=== PATIENT | male | born 1955 | race Caucasian/White ===

== ENCOUNTER 2023-06-28 18:45 | Inpatient (IN) | payer MEDICARE, MEDICAID ==
[~2023-06-28] VITALS: Ht 182.9 cm; Wt 88.6 kg
[2023-06-28 20:35] LABS: Basophils # (auto) 0.1 10 ^3/uL (0-0.2); Basophils % (auto) 0.9 % (0.0-2.0); Eosinophils # (auto) 0.4 10 ^3/uL (0-0.8); Eosinophils % (auto) 3.5 % (0.0-7.0); Hemoglobin 13.9 g/dL (13.5-17.5); Red Cell Distribution Width 15.4 % (11.8-14.3)
[2023-06-28 20:37] LABS: Hematocrit 40.7 % (41.0-53.0); Lymphocytes # (auto) 2.4 10 ^3/uL (0.4-5.4); Lymphocytes % (auto) 22.2 % (10.0-50.0); Mean Corpuscular Hemoglobin 28.1 pg (28.0-32.0); Mean Corpuscular Hgb Conc. 34.1 g/dL (32.0-36.0); Mean Corpuscular Volume 82.3 fL (80.0-100.0); Monocytes # (auto) 0.8 10 ^3/uL (0-1.3); Monocytes % (auto) 7.8 % (0.0-12.0); Neutrophils % (auto) 65.6 % (37.0-80.0); Red Blood Cells 4.95 10^6/uL (4.5-5.90); White Blood Cell 10.7 10^3/uL (4.4-10.8)
[2023-06-28 21:04] LABS: Alanine Aminotransferase 16 U/L (7-40); Albumin 4.2 g/dL (3.2-4.8); Alkaline Phosphatase 101 U/L (46-116); Anion Gap 12.9 (5-15); Aspartate Aminotransferase 10 U/L (13-40); BUN/Creatinine Ratio 21.7 (10.0-20.0); Bilirubin, Total 1.5 mg/dL (0.2-1.0); Blood Urea Nitrogen 36 mg/dL (9-23); Calcium 9.7 mg/dL (8.7-10.4); Carbon Dioxide 20.1 mmol/L (20-30); Chloride 104 mmol/L (98-107); Glucose 276 mg/dL (74-106); Potassium 3.7 mmol/L (3.5-5.1); Sodium 137 mmol/L (136-145)
[2023-06-28 21:05] LABS: Total Protein 7.3 g/dL (5.7-8.2)
[2023-06-29] MEDS ORDERED: AZITHROMYCIN 500MG/ 250ML 250 ML IV ONE (04:30)
[2023-06-29] MEDS ORDERED: cefTRIAXone 1GM/50ML D5W 50 ML IV ONE (04:30)
[2023-06-29] MEDS ORDERED: ACETAMINOPHEN 325 MG TAB PO ONE (04:30)
[2023-06-29] MEDS ORDERED: DexAMETHasone SOD PHOS 10MG/1ML VIAL INJ IV ONE (04:30)
[2023-06-29] MEDS ORDERED: LACTATED RINGER'S 1,000 ML IV ONE (04:30)
[2023-06-29] MEDS: ALBUTEROL SULF 2.5 MG/0.5ML(0.5%) NEB SOLN NEB ONE ×2 (04:37→05:14)
[2023-06-29] MEDS ORDERED: ONDANSETRON HCL 4 MG/2 ML VIAL IV PRN (06:00)
[2023-06-29] MEDS ORDERED: ACETAMINOPHEN 325 MG TAB PO PRN (06:00)
[2023-06-29] MEDS ORDERED: DEXTROSE (50%) 50ML SYRG IV PRN (06:00)
[2023-06-29] MEDS: ACCU-CHEK COMFORT CURVE STRIP VI SCH ×4 (07:00→22:28)
[2023-06-29] MEDS: cefTRIAXone 1GM/50ML D5W 50 ML IV SCH (08:16)
[2023-06-29] MEDS: InsuLIN REG 1unit/0.01ml Soln (100units/ml) SC SCH ×4 (08:35→22:33)
[2023-06-29] MEDS ORDERED: PANTOPRAZOLE 40 MG TAB PO SCH (10:00)
[2023-06-29] MEDS ORDERED: RIVAROXABAN 10 MG TAB PO SCH (10:00)
[2023-06-29] MEDS: AZITHROMYCIN 500MG/ 250ML 250 ML IV SCH (10:20)
[2023-06-29] MEDS: amLODIPine BESYLATE 5 MG TAB PO SCH (10:21)
[2023-06-29 12:51] LABS: Urine Bacteria NONE SEEN /hpf (None Seen); Urine Blood Negative /uL (Negative); Urine Clarity Clear (Clear); Urine Color Yellow (Yellow); Urine Hyaline Cast FEW /lpf (0 - 2); Urine Protein, UAD Negative (Negative); Urine Specific Gravity 1.013 (1.001-1.035); Urine WBC 1 /hpf (0 - 3)
[2023-06-29 13:26] LABS: Amphetamine Screen, Urine Pos (NEGATIVE)
[2023-06-29 13:27] LABS: Barbiturate Scree,Urine Neg (NEGATIVE); Benzodiazephine Screen, Urine Neg (NEGATIVE)
[2023-06-29 13:28] LABS: Cannabinoid Screen, Urine Pos (NEGATIVE); Cocaine Screen, Urine Neg (NEGATIVE); Opiate Scree,Urine Neg (NEGATIVE); Phencyclidine Screen, Urine Neg (NEGATIVE)
[2023-06-29 18:38] LABS: COVID19 ANTIGEN SOFIA FIA NEGATIVE (NEGATIVE)
[2023-06-29 21:22] VITALS: BP 141/77; PULSE 91; PULSE 97; RESP 16; TEMP 97.7; O2SAT 97
[2023-06-29 22:12] VITALS: PULSE 91; RESP 20; O2SAT 97
[2023-06-29] MEDS ORDERED: ACE3T PO (22:45)
[2023-06-29] MEDS ORDERED: GABA-339 PO (22:45)
[2023-06-29] MEDS ORDERED: METF-370 PO (22:45)
[2023-06-30] VITALS (7 sets, daily range): BP systolic 132–149; BP diastolic 70–97; PULSE 54–95; RESP 18–20; TEMP 98–98.3; O2SAT 95–98
[2023-06-30] MEDS: ACCU-CHEK COMFORT CURVE STRIP VI SCH ×4 (06:09→21:20)
[2023-06-30] MEDS: InsuLIN REG 1unit/0.01ml Soln (100units/ml) SC SCH ×4 (06:15→21:29)
[2023-06-30 06:54] LABS: Basophils # (auto) 0 10 ^3/uL (0-0.2); Basophils % (auto) 0.5 % (0.0-2.0); Eosinophils # (auto) 0.1 10 ^3/uL (0-0.8); Eosinophils % (auto) 0.7 % (0.0-7.0); Hematocrit 40.3 % (41.0-53.0); Hemoglobin 13.5 g/dL (13.5-17.5); Lymphocytes # (auto) 1.8 10 ^3/uL (0.4-5.4); Mean Corpuscular Hemoglobin 28.1 pg (28.0-32.0); Mean Corpuscular Hgb Conc. 33.6 g/dL (32.0-36.0); Mean Corpuscular Volume 83.6 fL (80.0-100.0); Monocytes # (auto) 0.9 10 ^3/uL (0-1.3); Monocytes % (auto) 8.7 % (0.0-12.0); Neutrophils # (auto) 7.3 10 ^3/uL (1.6-8.6); Neutrophils % (auto) 72.1 % (37.0-80.0); Nucleated Red Blood Cells % 0.1 %; Red Blood Cells 4.82 10^6/uL (4.5-5.90); Red Cell Distribution Width 15.4 % (11.8-14.3); White Blood Cell 10.1 10^3/uL (4.4-10.8)
[2023-06-30 07:58] LABS: Albumin 3.7 g/dL (3.2-4.8); Aspartate Aminotransferase < 8 U/L (13-40)
[2023-06-30 07:59] LABS: Alanine Aminotransferase 11 U/L (7-40); Alkaline Phosphatase 81 U/L (46-116); Anion Gap 8 (5-15); BUN/Creatinine Ratio 22.4 (10.0-20.0); Bilirubin, Total 1.4 mg/dL (0.2-1.0); Blood Urea Nitrogen 22 mg/dL (9-23); Calcium 9.3 mg/dL (8.5-10.1); Carbon Dioxide 24 mmol/L (20-30); Chloride 107 mmol/L (98-107); Glucose 278 mg/dL (74-106); Potassium 3.3 mmol/L (3.5-5.1); Sodium 139 mmol/L (136-145); Total Protein 6.8 g/dL (5.7-8.2)
[2023-06-30] MEDS: cefTRIAXone 1GM/50ML D5W 50 ML IV SCH (08:43)
[2023-06-30] MEDS: amLODIPine BESYLATE 5 MG TAB PO SCH (09:33)
[2023-06-30] MEDS: AZITHROMYCIN 500MG/ 250ML 250 ML IV SCH (09:33)
[2023-06-30 15:14] LABS: Hepatitis B Surface Antigen Negative (Negative)
[2023-06-30 15:36] LABS: Hepatitis C Antibody Negative (Negative)
[2023-06-30] MEDS: DOXYCYCLINE 100 MG TAB/CAP PO SCH (21:26)
[2023-07-01 05:00] VITALS: BP 150/87; PULSE 84; RESP 20; TEMP 97.8; O2SAT 95
[2023-07-01] MEDS: ACCU-CHEK COMFORT CURVE STRIP VI SCH ×4 (06:12→21:11)
[2023-07-01] MEDS: InsuLIN REG 1unit/0.01ml Soln (100units/ml) SC SCH ×4 (06:16→21:15)
[2023-07-01 08:00] VITALS: BP 157/105; PULSE 88; PULSE 93; RESP 16; RESP 19; TEMP 98; O2SAT 96; O2SAT 97
[2023-07-01] MEDS: amLODIPine BESYLATE 5 MG TAB PO SCH (09:47)
[2023-07-01] MEDS: cefTRIAXone 1GM/50ML D5W 50 ML IV SCH (09:47)
[2023-07-01] MEDS: DOXYCYCLINE 100 MG TAB/CAP PO SCH ×2 (09:47→21:11)
[2023-07-01] MEDS ORDERED: cloNIDine HCL 0.1 MG TAB PO ONE (10:30)
[2023-07-01 12:00] VITALS: BP 180/113; PULSE 77; RESP 20; TEMP 98; O2SAT 97
[2023-07-01 16:00] VITALS: BP 137/89; PULSE 101; RESP 20; TEMP 98.5; O2SAT 96
[2023-07-01 20:00] VITALS: PULSE 96; RESP 19; O2SAT 96
[2023-07-01 22:00] VITALS: BP 116/80; PULSE 96; RESP 20; TEMP 98.2; O2SAT 98
[2023-07-02 05:00] VITALS: BP 137/89; PULSE 82; RESP 18; TEMP 97.6; O2SAT 95
[2023-07-02] MEDS: ACCU-CHEK COMFORT CURVE STRIP VI SCH ×3 (06:25→17:00)
[2023-07-02] MEDS: InsuLIN REG 1unit/0.01ml Soln (100units/ml) SC SCH ×3 (06:29→17:00)
[2023-07-02 08:00] VITALS: PULSE 92; RESP 18; O2SAT 96
[2023-07-02 09:00] VITALS: BP 129/85; PULSE 87; RESP 14; TEMP 98.1; O2SAT 95
[2023-07-02] MEDS: DOXYCYCLINE 100 MG TAB/CAP PO SCH (10:12)
[2023-07-02] MEDS: amLODIPine BESYLATE 5 MG TAB PO SCH (10:12)
[2023-07-02] MEDS: cefTRIAXone 1GM/50ML D5W 50 ML IV SCH (10:12)
[2023-07-02] MEDS: GABAPENTIN 300 MG CAP PO SCH ×2 (12:00→14:00)
[2023-07-02 13:00] VITALS: BP 174/84; PULSE 67; RESP 18; TEMP 99; O2SAT 99
[2023-07-02] MEDS ORDERED: cloNIDine HCL 0.1 MG TAB PO ONE (13:15)
[2023-07-02 17:00] VITALS: BP 118/73; PULSE 89; RESP 17; TEMP 98.5; O2SAT 96
== END 2023-07-02 18:22 | DRG 179 ==
LOC: ER 18:45 → OVERFLOW 06-29 05:55 → WEST WING 06-29 21:15
PROVIDERS: ADMIT Nurse Practitioner; ATTEND Family Medicine
DX: J15.6 Pneumonia due to other Gram-negative bacteria (principal); J15.9 Unspecified bacterial pneumonia; E86.0 Dehydration; I12.9 Hypertensive chronic kidney disease with stage 1 through stage 4 chronic kidney disease, or unspecified chronic kidney disease; E11.22 Type 2 diabetes mellitus with diabetic chronic kidney disease; E11.65 Type 2 diabetes mellitus with hyperglycemia; F17.210 Nicotine dependence, cigarettes, uncomplicated; N18.9 Chronic kidney disease, unspecified; R79.89 Other specified abnormal findings of blood chemistry; Z20.822 Contact with and (suspected) exposure to COVID-19; Z59.00 Homelessness unspecified
CPT/HCPCS: 36415; 71045; 80053; 80307; 81001; 82962; 83036; 83880; 84484; 85025; 86803; 87040; 87340; 87426; 93005; 93970; 94640; 97110; 97163; 97530; G0378; J0696; J1100; J1815

== ENCOUNTER 2024-04-24 15:02 | Inpatient (IN) | payer OTHER, BC, MEDICAID ==
[~2024-04-24] VITALS: Ht 182.9 cm; Wt 106.6 kg
[~2024-04-24 15:02] MED LIST: ACE3T PO; GABA-339 PO; METF-370 PO
[2024-04-24 16:43] LABS: Basophils # (auto) 0.1 10 ^3/uL (0-0.2); Basophils % (auto) 0.7 % (0.0-2.0); Eosinophils # (auto) 0 10 ^3/uL (0-0.8); Hematocrit 39.5 % (41.0-53.0); Hemoglobin 13.5 g/dL (13.5-17.5); Lymphocytes # (auto) 0.6 10 ^3/uL (0.4-5.4); Lymphocytes % (auto) 4.4 % (10.0-50.0); Mean Corpuscular Hemoglobin 28.3 pg (28.0-32.0); Mean Corpuscular Hgb Conc. 34.2 g/dL (32.0-36.0); Mean Corpuscular Volume 82.8 fL (80.0-100.0); Monocytes # (auto) 1.2 10 ^3/uL (0-1.3); Monocytes % (auto) 8.3 % (0.0-12.0); Neutrophils # (auto) 12.4 10 ^3/uL (1.6-8.6); Neutrophils % (auto) 86.6 % (37.0-80.0); Red Blood Cells 4.77 10^6/uL (4.5-5.90); Red Cell Distribution Width 14.2 % (11.8-14.3); White Blood Cell 14.4 10^3/uL (4.4-10.8)
[2024-04-24 17:00] LABS: Alanine Aminotransferase 33 U/L (7-40); Albumin 3.5 g/dL (3.2-4.8); Alkaline Phosphatase 94 U/L (46-116); Anion Gap 7 (5-15); Aspartate Aminotransferase 140 U/L (13-40); BUN/Creatinine Ratio 18.3 (10.0-20.0); Bilirubin, Total 4.4 mg/dL (0.2-1.0); Blood Urea Nitrogen 30 mg/dL (9-23); Calcium 8.6 mg/dL (8.5-10.1); Carbon Dioxide 26 mmol/L (20-30); Chloride 95 mmol/L (98-107); Glucose 374 mg/dL (74-106); Magnesium 1.5 mg/dL (1.6-2.6); Potassium 4.1 mmol/L (3.5-5.1); Sodium 128 mmol/L (136-145); Total Protein 5.8 g/dL (5.7-8.2)
[2024-04-24 17:11] LABS: Creatine Kinase IFCC 6497 U/L (46-171)
[2024-04-24] MEDS: PIPERACILLIN-TAZOB 3.375GM 100 ML IV ONE (17:11)
[2024-04-24] MEDS: SODIUM CHLORIDE 0.9% 1,000 ML IV ONE ×2 (17:11→19:05)
[2024-04-24 19:31] VITALS: PULSE 98; RESP 24; O2SAT 90
[2024-04-24 19:44] LABS: Urine Amorphous Crystal FEW /hpf (None Seen); Urine Bacteria FEW /hpf (None Seen); Urine Blood 3+ /uL (Negative); Urine Clarity Turbid (Clear); Urine Color Light-Orange (Yellow); Urine Protein, UAD 1+ (Negative); Urine Specific Gravity 1.013 (1.001-1.035); Urine Urobilinogen Normal (Negative); Urine WBC 4 /hpf (0 - 3); Urine pH 5.5 (5.0-9.0)
[2024-04-24] MEDS: ACETAMINOPHEN 500 MG TAB PO ONE (19:44)
[2024-04-24 19:53] LABS: COVID19 ANTIGEN SOFIA FIA NEGATIVE (NEGATIVE)
[2024-04-24] MEDS ORDERED: NITROGLYCERIN 0.4 MG SL TAB SL PRN (20:30)
[2024-04-24] MEDS ORDERED: ONDANSETRON HCL 4 MG/2 ML VIAL IV PRN (20:30)
[2024-04-24] MEDS ORDERED: DOCUSATE SOD 100 MG CAP PO PRN (20:30)
[2024-04-24] MEDS ORDERED: MORPHINE SULFATE INJ 2 MG/ml SYRG IV PRN (20:30)
[2024-04-24] MEDS ORDERED: IBUPROFEN 600 MG TAB PO PRN (20:30)
[2024-04-24] MEDS ORDERED: VANCOMYCIN PER PHARMACY 0 MG IV SCH (20:30)
[2024-04-24] MEDS ORDERED: DEXTROSE (50%) 50ML SYRG IV PRN (20:30)
[2024-04-24] MEDS ORDERED: hydrALAZINE HCL 20 MG/ML VL IV PRN (21:00)
[2024-04-24] MEDS: SODIUM CHLORIDE 0.9% 1,000 ML IV SCH (21:15)
[2024-04-24] MEDS: MAGNESIUM SULFATE 1GM/100ML 100 ML IV SCH (21:15)
[2024-04-25] VITALS (9 sets, daily range): BP systolic 113–140; BP diastolic 59–78; PULSE 80–97; RESP 16–20; TEMP 98.2–100.9; O2SAT 90–96
[2024-04-25] MEDS: InsuLIN REG 1unit/0.01ml Soln (100units/ml) SC SCH
[2024-04-25] MEDS: ENOXAPARIN SOD 100 MG/1 ML SYRINGE SC SCH (01:09)
[2024-04-25] MEDS: VANCOMYCIN 1GM/200ML 200 ML IV ONE (01:11)
[2024-04-25] MEDS: ACCU-CHEK COMFORT CURVE STRIP VI SCH (01:12)
[2024-04-25] MEDS: MAGNESIUM SULFATE 1GM/100ML 100 ML IV ONE (01:12)
[2024-04-25] MEDS: PIPERACILLIN-TAZOB 3.375GM 100 ML IV SCH (02:50)
[2024-04-25 05:50] LABS: Basophils # (auto) 0.1 10 ^3/uL (0-0.2); Basophils % (auto) 0.6 % (0.0-2.0); Eosinophils # (auto) 0.1 10 ^3/uL (0-0.8); Eosinophils % (auto) 0.4 % (0.0-7.0); Hemoglobin 12.8 g/dL (13.5-17.5); Lymphocytes # (auto) 1.3 10 ^3/uL (0.4-5.4); Lymphocytes % (auto) 10.3 % (10.0-50.0); Mean Corpuscular Hemoglobin 28.1 pg (28.0-32.0); Mean Corpuscular Hgb Conc. 33.8 g/dL (32.0-36.0); Mean Corpuscular Volume 83.1 fL (80.0-100.0); Monocytes # (auto) 0.9 10 ^3/uL (0-1.3); Monocytes % (auto) 7.2 % (0.0-12.0); Neutrophils # (auto) 10.3 10 ^3/uL (1.6-8.6); Neutrophils % (auto) 81.5 % (37.0-80.0); Red Blood Cells 4.57 10^6/uL (4.5-5.90); Red Cell Distribution Width 14.1 % (11.8-14.3); White Blood Cell 12.7 10^3/uL (4.4-10.8)
[2024-04-25 06:02] LABS: Alanine Aminotransferase 28 U/L (7-40); Albumin 3.3 g/dL (3.2-4.8); Alkaline Phosphatase 81 U/L (46-116); Anion Gap 7 (5-15); Aspartate Aminotransferase 80 U/L (13-40); BUN/Creatinine Ratio 16.6 (10.0-20.0); Bilirubin, Total 3.3 mg/dL (0.2-1.0); Blood Urea Nitrogen 25 mg/dL (9-23); Calcium 8.9 mg/dL (8.7-10.4); Carbon Dioxide 25 mmol/L (20-30); Chloride 104 mmol/L (98-107); Glucose 208 mg/dL (74-106); Potassium 3.4 mmol/L (3.5-5.1); Sodium 136 mmol/L (136-145)
[2024-04-25] MEDS: MORPHINE SULFATE INJ 2 MG/ml SYRG IV PRN (08:30)
[2024-04-25 09:04] LABS: Sodium Urine < 10 mmol/L (40-220)
[2024-04-25 09:11] LABS: Protein, Urine 104.1 mg/dL (0.0-11.9)
[2024-04-25 09:12] LABS: Creatinine, Urine 62.05 mg/dL (30.0-125.0)
[2024-04-25] MEDS: POTASSIUM CHLORIDE 8 MEQ TAB PO SCH (10:00)
[2024-04-25] MEDS ORDERED: SODIUM CHLORIDE 0.9% 1,000 ML IV SCH (16:15)
[2024-04-25] MEDS: SODIUM CHLORIDE 0.9% 1,000 ML IV SCH (16:41)
[2024-04-25] MEDS: VANCOMYCIN 1GM/200ML 200 ML IV SCH (20:00)
[2024-04-26] VITALS (9 sets, daily range): BP systolic 110–140; BP diastolic 52–79; PULSE 59–90; RESP 16–22; TEMP 37; O2SAT 91–100
[2024-04-26 05:52] LABS: Basophils # (auto) 0.1 10 ^3/uL (0-0.2); Basophils % (auto) 0.5 % (0.0-2.0); Eosinophils # (auto) 0.3 10 ^3/uL (0-0.8); Hematocrit 35.8 % (41.0-53.0); Lymphocytes # (auto) 1.2 10 ^3/uL (0.4-5.4); Lymphocytes % (auto) 10.5 % (10.0-50.0); Mean Corpuscular Hemoglobin 28.1 pg (28.0-32.0); Mean Corpuscular Hgb Conc. 33.6 g/dL (32.0-36.0); Mean Corpuscular Volume 83.7 fL (80.0-100.0); Monocytes # (auto) 1.1 10 ^3/uL (0-1.3); Monocytes % (auto) 9.6 % (0.0-12.0); Neutrophils # (auto) 8.9 10 ^3/uL (1.6-8.6); Neutrophils % (auto) 76.4 % (37.0-80.0); Red Blood Cells 4.28 10^6/uL (4.5-5.90); Red Cell Distribution Width 14.5 % (11.8-14.3); White Blood Cell 11.7 10^3/uL (4.4-10.8)
[2024-04-26 06:15] LABS: Alanine Aminotransferase 23 U/L (7-40); Albumin 3.4 g/dL (3.2-4.8); Alkaline Phosphatase 99 U/L (46-116); Anion Gap 7 (5-15); Aspartate Aminotransferase 43 U/L (13-40); BUN/Creatinine Ratio 18.9 (10.0-20.0); Blood Urea Nitrogen 21 mg/dL (9-23); Calcium 8.7 mg/dL (8.5-10.1); Carbon Dioxide 24 mmol/L (20-30); Chloride 102 mmol/L (98-107); Creatine Kinase IFCC 894 U/L (46-171); Glucose 214 mg/dL (74-106); LDL Cholesterol 71 mg/dL (< 100); Potassium 3.5 mmol/L (3.5-5.1); Sodium 133 mmol/L (136-145); Total Protein 5.9 g/dL (5.7-8.2); Triglycerides 146 mg/dL (< 150)
[2024-04-26 06:16] LABS: Bilirubin, Total 2.2 mg/dL (0.2-1.0); Cholesterol 124 mg/dL (< 200); HDL Cholesterol 24 mg/dL (40-59); Phosphorus 2.2 mg/dL (2.4-5.1)
[2024-04-26] MEDS: IOHEXOL 350 MG/ML 100ML IJ ONE (07:37)
[2024-04-26] MEDS ORDERED: VANCOMYCIN 1GM/200ML 200 ML IV SCH (10:00)
[2024-04-26] MEDS: SODIUM CHLORIDE 0.9% 1,000 ML IV SCH (11:30)
[2024-04-26] MEDS ORDERED: DEXTROSE (50%) 50ML SYRG IV PRN (19:45)
[2024-04-26] MEDS: ACCU-CHEK COMFORT CURVE STRIP VI SCH (21:15)
[2024-04-26] MEDS: CEFEPIME 1GM/ 50ML 50 ML IV SCH (21:17)
[2024-04-26] MEDS: InsuLIN REG 1unit/0.01ml Soln (100units/ml) SC SCH (21:25)
[2024-04-26] MEDS: HYDROcodone-ACET 5/325MG TAB PO PRN (21:32)
[2024-04-27] VITALS (9 sets, daily range): BP systolic 123–134; BP diastolic 64–90; PULSE 71–104; RESP 14–22; TEMP 97.6–98.7; O2SAT 94–99
[2024-04-27 03:11] LABS: Basophils # (auto) 0.1 10 ^3/uL (0-0.2); Eosinophils # (auto) 0.4 10 ^3/uL (0-0.8); Eosinophils % (auto) 4.3 % (0.0-7.0); Hematocrit 35.4 % (41.0-53.0); Lymphocytes # (auto) 1.8 10 ^3/uL (0.4-5.4); Lymphocytes % (auto) 18.3 % (10.0-50.0); Mean Corpuscular Hemoglobin 28.5 pg (28.0-32.0); Monocytes % (auto) 9.9 % (0.0-12.0); Neutrophils # (auto) 6.4 10 ^3/uL (1.6-8.6); Neutrophils % (auto) 66.5 % (37.0-80.0); Red Blood Cells 4.21 10^6/uL (4.5-5.90); Red Cell Distribution Width 14.4 % (11.8-14.3); White Blood Cell 9.7 10^3/uL (4.4-10.8)
[2024-04-27 03:22] LABS: Chloride 104 mmol/L (98-107); Potassium 3.5 mmol/L (3.5-5.1); Sodium 134 mmol/L (136-145)
[2024-04-27 03:23] LABS: Anion Gap 7 (5-15); Carbon Dioxide 23 mmol/L (20-30)
[2024-04-27 03:24] LABS: Calcium 8.9 mg/dL (8.7-10.4)
[2024-04-27 03:28] LABS: BUN/Creatinine Ratio 16.2 (10.0-20.0); Blood Urea Nitrogen 17 mg/dL (9-23); Glucose 222 mg/dL (74-106)
[2024-04-27] MEDS: InsuLIN REG 1unit/0.01ml Soln (100units/ml) SC SCH (06:10)
[2024-04-27] MEDS: BUPIVACAINE HCL 50 ML ONE (10:40)
[2024-04-27] MEDS: DexAMETHasone SOD PHOS 4 MG/1ML SDV INJ ONE (10:40)
[2024-04-27] MEDS: EPINEPHrine HCL 1 MG/1 ML AMP ONE (10:40)
[2024-04-27] MEDS: BUPIVACAINE 0.25% INJ 50ML VIAL ONE ×2 (10:40→10:53)
[2024-04-27] MEDS ORDERED: KETAMINE 50mg/ML 1ml syringe ONE (10:43)
[2024-04-27] MEDS ORDERED: fentaNYL CITRATE 100 MCG/2 ML VL ONE (10:43)
[2024-04-27] MEDS: LIDOCAINE W/ EPINEPHRINE 1% 20ML VIAL ONE (10:53)
[2024-04-27] MEDS: ACETAMINOPHEN IV 100 ML IV ONE (11:56)
[2024-04-27] MEDS: CELECOXIB 100 MG CAP ONE (11:56)
[2024-04-27] MEDS: GABAPENTIN 400 MG CAP ONE (11:56)
[2024-04-27] MEDS: ACETAMINOPHEN IV 1000 MG/100ML (10MG/ML) IV ONE (12:00)
[2024-04-27] MEDS: CELECOXIB 100 MG CAP PO ONE (12:00)
[2024-04-27] MEDS: GABAPENTIN 400 MG CAP PO ONE (12:00)
[2024-04-27] MEDS ORDERED: PROPOFOL 10 MG/ML 20 ML IV ONE ×3 (14:24→15:14)
[2024-04-27] MEDS ORDERED: hydrALAZINE HCL 20 MG/ML VL IV PRN (16:00)
[2024-04-27] MEDS ORDERED: fentaNYL CITRATE 100 MCG/2 ML VL IV PRN (16:00)
[2024-04-27] MEDS ORDERED: ONDANSETRON HCL 4 MG/2 ML VIAL IV PRN (16:00)
[2024-04-27] MEDS ORDERED: HYDROmorphone HCL 2 MG/ML VL/or syr IV PRN (16:00)
[2024-04-27] MEDS ORDERED: FLUMAZENIL 0.1 MG/ML INJ 10ML MDV IV PRN (16:00)
[2024-04-27] MEDS ORDERED: ePHEDrine SULFATE 50 MG/ML AMP IV PRN (16:00)
[2024-04-27] MEDS ORDERED: NALOXONE HCL 0.4 MG/ML VIAL IV PRN (16:00)
[2024-04-27] MEDS: LACTATED RINGER'S 1,000 ML IV SCH (17:00)
[2024-04-27] MEDS ORDERED: LIDOCAINE 1%HCL (LOCAL ANESTH) 10 ML MDV IJ ONE (19:09)
[2024-04-27] MEDS: ENOXAPARIN SOD 100 MG/1 ML SYRINGE SC SCH (22:11)
[2024-04-28] VITALS (8 sets, daily range): BP systolic 109–154; BP diastolic 71–76; PULSE 60–77; RESP 18–20; TEMP 97.7–98.2; O2SAT 93–96
[2024-04-28 06:14] LABS: Basophils # (auto) 0 10 ^3/uL (0-0.2); Basophils % (auto) 0.2 % (0.0-2.0); Eosinophils # (auto) 0 10 ^3/uL (0-0.8); Eosinophils % (auto) 0.1 % (0.0-7.0); Hematocrit 39.9 % (41.0-53.0); Hemoglobin 13.5 g/dL (13.5-17.5); Lymphocytes # (auto) 0.7 10 ^3/uL (0.4-5.4); Lymphocytes % (auto) 6.9 % (10.0-50.0); Mean Corpuscular Hemoglobin 28.7 pg (28.0-32.0); Mean Corpuscular Hgb Conc. 33.8 g/dL (32.0-36.0); Mean Corpuscular Volume 84.7 fL (80.0-100.0); Monocytes # (auto) 0.6 10 ^3/uL (0-1.3); Monocytes % (auto) 5.7 % (0.0-12.0); Neutrophils # (auto) 8.5 10 ^3/uL (1.6-8.6); Neutrophils % (auto) 87.1 % (37.0-80.0); Red Cell Distribution Width 14.9 % (11.8-14.3); White Blood Cell 9.7 10^3/uL (4.4-10.8)
[2024-04-28 06:24] LABS: Anion Gap 7 (5-15); Carbon Dioxide 27 mmol/L (20-30); Chloride 100 mmol/L (98-107); Potassium 4.4 mmol/L (3.5-5.1); Sodium 134 mmol/L (136-145)
[2024-04-28 06:30] LABS: BUN/Creatinine Ratio 20.5 (10.0-20.0)
[2024-04-28 06:31] LABS: Blood Urea Nitrogen 27 mg/dL (9-23)
[2024-04-28 06:35] LABS: Glucose 467 mg/dL (74-106)
[2024-04-29] VITALS (8 sets, daily range): BP systolic 136–148; BP diastolic 14–80; PULSE 61–69; RESP 18–22; TEMP 97.8–98.2; O2SAT 92–98
[2024-04-29] MEDS: INSULIN LANTUS (GLARGINE) 1 /0.01ml (100units/ml) SC SCH (06:42)
[2024-04-29 07:34] LABS: Chloride 106 mmol/L (98-107); Potassium 3.7 mmol/L (3.5-5.1); Sodium 137 mmol/L (136-145)
[2024-04-29 07:35] LABS: Anion Gap 6 (5-15); Calcium 8.8 mg/dL (8.7-10.4); Carbon Dioxide 25 mmol/L (20-30)
[2024-04-29 07:37] LABS: Basophils # (auto) 0 10 ^3/uL (0-0.2); Basophils % (auto) 0.4 % (0.0-2.0); Eosinophils # (auto) 0.3 10 ^3/uL (0-0.8); Eosinophils % (auto) 2.7 % (0.0-7.0); Hematocrit 35.5 % (41.0-53.0); Hemoglobin 12.3 g/dL (13.5-17.5); Lymphocytes # (auto) 2.6 10 ^3/uL (0.4-5.4); Lymphocytes % (auto) 24.6 % (10.0-50.0); Mean Corpuscular Hemoglobin 29.2 pg (28.0-32.0); Mean Corpuscular Hgb Conc. 34.6 g/dL (32.0-36.0); Mean Corpuscular Volume 84.1 fL (80.0-100.0); Monocytes # (auto) 0.8 10 ^3/uL (0-1.3); Monocytes % (auto) 7.8 % (0.0-12.0); Neutrophils # (auto) 6.9 10 ^3/uL (1.6-8.6); Neutrophils % (auto) 64.5 % (37.0-80.0); Red Blood Cells 4.22 10^6/uL (4.5-5.90); Red Cell Distribution Width 14.4 % (11.8-14.3); White Blood Cell 10.7 10^3/uL (4.4-10.8)
[2024-04-29 07:40] LABS: BUN/Creatinine Ratio 22.7 (10.0-20.0); Blood Urea Nitrogen 22 mg/dL (9-23)
[2024-04-29 07:43] LABS: Glucose 283 mg/dL (74-106)
[2024-04-29] MEDS: oxyCODONE HCL 5MG TAB PO PRN (17:48)
[2024-04-29] MEDS: ENOXAPARIN SOD 120 MG/0.8 ML SYRINGE SC SCH (22:30)
[2024-04-29] MEDS: MORPHINE SULFATE INJ 2 MG/ml SYRG ONE (22:36)
[2024-04-30] VITALS (7 sets, daily range): BP systolic 129–144; BP diastolic 71–82; PULSE 68–85; RESP 17–22; TEMP 98.1–98.9; O2SAT 95–99
[2024-04-30] MEDS: INSULIN LANTUS (GLARGINE) 1 /0.01ml (100units/ml) SC SCH (06:47)
[2024-04-30] MEDS: VANCOMYCIN 1GM/200ML 200 ML IV SCH (21:13)
[2024-05-01] VITALS (9 sets, daily range): BP systolic 123–155; BP diastolic 71–89; PULSE 58–106; RESP 16–19; TEMP 97.7–99.2; O2SAT 93–100
[2024-05-01 09:17] LABS: Basophils # (auto) 0.1 10 ^3/uL (0-0.2); Eosinophils # (auto) 0.3 10 ^3/uL (0-0.8); Hemoglobin 13.9 g/dL (13.5-17.5); Lymphocytes # (auto) 1.9 10 ^3/uL (0.4-5.4); Lymphocytes % (auto) 21.8 % (10.0-50.0); Mean Corpuscular Hemoglobin 29.2 pg (28.0-32.0); Mean Corpuscular Hgb Conc. 34.7 g/dL (32.0-36.0); Mean Corpuscular Volume 84.2 fL (80.0-100.0); Monocytes # (auto) 0.8 10 ^3/uL (0-1.3); Monocytes % (auto) 8.7 % (0.0-12.0); Neutrophils # (auto) 5.6 10 ^3/uL (1.6-8.6); Neutrophils % (auto) 64.5 % (37.0-80.0); Nucleated Red Blood Cells % 0.1 %; Red Blood Cells 4.75 10^6/uL (4.5-5.90); Red Cell Distribution Width 14.7 % (11.8-14.3); White Blood Cell 8.7 10^3/uL (4.4-10.8)
[2024-05-01 09:26] LABS: Anion Gap 4 (5-15); Carbon Dioxide 29 mmol/L (20-30); Chloride 103 mmol/L (98-107); Sodium 136 mmol/L (136-145)
[2024-05-01 09:27] LABS: Calcium 9.4 mg/dL (8.7-10.4)
[2024-05-01 09:32] LABS: BUN/Creatinine Ratio 15.6 (10.0-20.0); Blood Urea Nitrogen 14 mg/dL (9-23); Glucose 264 mg/dL (74-106)
[2024-05-02] VITALS (7 sets, daily range): BP systolic 122–155; BP diastolic 66–91; PULSE 60–79; RESP 16–20; TEMP 97.7–98.1; O2SAT 95–98
[2024-05-02] MEDS: VANCOMYCIN 1GM/200ML 200 ML IV SCH (03:38)
[2024-05-02 07:13] LABS: Basophils # (auto) 0.1 10 ^3/uL (0-0.2); Basophils % (auto) 0.9 % (0.0-2.0); Monocytes # (auto) 0.9 10 ^3/uL (0-1.3)
[2024-05-02 07:15] LABS: Eosinophils # (auto) 0.5 10 ^3/uL (0-0.8); Eosinophils % (auto) 4.8 % (0.0-7.0); Hematocrit 38.7 % (41.0-53.0); Hemoglobin 13.2 g/dL (13.5-17.5); Lymphocytes # (auto) 2.5 10 ^3/uL (0.4-5.4); Lymphocytes % (auto) 26.5 % (10.0-50.0); Mean Corpuscular Hemoglobin 28.6 pg (28.0-32.0); Mean Corpuscular Hgb Conc. 34.1 g/dL (32.0-36.0); Mean Corpuscular Volume 84.1 fL (80.0-100.0); Neutrophils # (auto) 5.6 10 ^3/uL (1.6-8.6); Neutrophils % (auto) 58.8 % (37.0-80.0); Nucleated Red Blood Cells % 0.2 %; Red Blood Cells 4.61 10^6/uL (4.5-5.90); Red Cell Distribution Width 15.2 % (11.8-14.3); White Blood Cell 9.5 10^3/uL (4.4-10.8)
[2024-05-02 07:24] LABS: Chloride 104 mmol/L (98-107); Potassium 3.9 mmol/L (3.5-5.1); Sodium 137 mmol/L (136-145)
[2024-05-02 07:25] LABS: Anion Gap 7 (5-15); Calcium 9.2 mg/dL (8.7-10.4); Carbon Dioxide 26 mmol/L (20-30)
[2024-05-02 07:30] LABS: BUN/Creatinine Ratio 21.4 (10.0-20.0); Blood Urea Nitrogen 21 mg/dL (9-23); Glucose 173 mg/dL (74-106)
[2024-05-03 01:00] VITALS: BP 121/71; PULSE 76; RESP 22; TEMP 98.7; O2SAT 95
[2024-05-03 05:00] VITALS: BP 121/71; PULSE 63; RESP 22; TEMP 98.1; O2SAT 98
[2024-05-03 06:19] LABS: Basophils # (auto) 0.1 10 ^3/uL (0-0.2); Hemoglobin 13.1 g/dL (13.5-17.5); Lymphocytes # (auto) 2.4 10 ^3/uL (0.4-5.4); Monocytes # (auto) 0.7 10 ^3/uL (0-1.3); Monocytes % (auto) 7.4 % (0.0-12.0); White Blood Cell 9.7 10^3/uL (4.4-10.8)
[2024-05-03 06:23] LABS: Anion Gap 5 (5-15); Basophils % (auto) 0.8 % (0.0-2.0); Calcium 9.1 mg/dL (8.7-10.4); Carbon Dioxide 27 mmol/L (20-30); Chloride 104 mmol/L (98-107); Eosinophils # (auto) 0.4 10 ^3/uL (0-0.8); Eosinophils % (auto) 4.5 % (0.0-7.0); Hematocrit 39.2 % (41.0-53.0); Lymphocytes % (auto) 25.1 % (10.0-50.0); Mean Corpuscular Hemoglobin 28.5 pg (28.0-32.0); Mean Corpuscular Hgb Conc. 33.5 g/dL (32.0-36.0); Mean Corpuscular Volume 85.1 fL (80.0-100.0); Neutrophils % (auto) 62.2 % (37.0-80.0); Nucleated Red Blood Cells % 0.3 %; Potassium 4.1 mmol/L (3.5-5.1); Red Cell Distribution Width 15.4 % (11.8-14.3); Sodium 136 mmol/L (136-145)
[2024-05-03 06:29] LABS: BUN/Creatinine Ratio 17.5 (10.0-20.0); Blood Urea Nitrogen 17 mg/dL (9-23); Glucose 183 mg/dL (74-106)
[2024-05-03 09:04] VITALS: BP 141/78; PULSE 73; RESP 18; TEMP 98.3; O2SAT 97
[2024-05-03 13:00] VITALS: BP 144/68; PULSE 68; RESP 18; RESP 5; TEMP 98.4; O2SAT 96
[2024-05-03 16:39] VITALS: BP 143/88; PULSE 66; RESP 18; TEMP 97.8; O2SAT 98
[2024-05-04] MEDS ORDERED: cefTRIAXone 1GM/50ML D5W 50 ML IV SCH (09:00)
== END 2024-05-03 19:10 | disposition short-term general hospital (02) | DRG 853 ==
LOC: EDBD 15:02 → ER 15:02 → TELE 20:54 → TELE-WESTW 22:12 → WEST WING 05-02 15:35
PROVIDERS: ADMIT Internal Medicine Geriatric Medicine; ATTEND Internal Medicine Geriatric Medicine
PROC: 0QSG35Z Reposition Right Tibia with External Fixation Device, Percutaneous Approach (ICD-10-PCS; principal; 2024-04-27 14:01)
DX: A41.9 Sepsis, unspecified organism (principal); N17.0 Acute kidney failure with tubular necrosis; M62.82 Rhabdomyolysis; J98.11 Atelectasis; L03.115 Cellulitis of right lower limb; I82.411 Acute embolism and thrombosis of right femoral vein; E87.1 Hypo-osmolality and hyponatremia; S82.891A Other fracture of right lower leg, initial encounter for closed fracture; E86.0 Dehydration; E83.42 Hypomagnesemia; E87.6 Hypokalemia; E78.5 Hyperlipidemia, unspecified; Z20.822 Contact with and (suspected) exposure to COVID-19; I10 Essential (primary) hypertension; E11.51 Type 2 diabetes mellitus with diabetic peripheral angiopathy without gangrene; G31.9 Degenerative disease of nervous system, unspecified; W18.39XA Other fall on same level, initial encounter; Z82.49 Family history of ischemic heart disease and other diseases of the circulatory system; Y93.89 Activity, other specified; Y92.89 Other specified places as the place of occurrence of the external cause; Y99.8 Other external cause status
CPT/HCPCS: 36415; 70450; 71045; 73600; 73700; 73706; 76000; 76775; 80048; 80053; 80061; 80202; 81001; 82550; 82570; 82962; 83036; 83605; 83735; 83880; 83930; 83935; 84100; 84133; 84156; 84300; 84439; 84443; 84484; 85025; 86850; 86900; 86901; 87040; 87086; 87426; 93005; 93971; 96365; 96372; 97110; 97163; 97530; G0378; J0131; J0171; J1100; J1815; J2001; J2405; J2543; J2704; J3490